=== PATIENT | male | born 1960 | race Caucasian/White ===

== ENCOUNTER 2020-01-06 15:36 | Emergency (ER) | payer BC ==
--- OUTSIDE RECORDS SUMMARY | 2020-01-06 15:38 | XMS REPORT ---
:1960 [facility] Organization [facility] Address [address] [place] [address] Care Team Providers Name Role Phone Unavailable Unavailable Unavailable Payers Payer Name Policy Type Policy Number Effective Date Expiration Date Problems This patient has no known problems. Allergies, Adverse Reactions, Alerts This patient has no known allergies or adverse reactions. Medications This patient has no known medications.
[2020-01-06] MEDS ORDERED: ASPIRIN 81 MG CHEWABLE TABLET ONE (15:57)
[2020-01-06] MEDS ORDERED: ONDANSETRON 4 MG/2 ML VIAL ONE (15:58)
[2020-01-06] MEDS ORDERED: MORPHINE 4 MG/ML SYR ONE (15:58)
[2020-01-06 16:06] LABS: Absolute Lymphocytes (CBC) 2.1 K/uL (0.7-4.9); Basophils % 0.8 % (0-1.3); Hematocrit 42.9 % (39.6-49.0); Lymphocytes % 28.8 % (15.3-44.8); RBC Red Blood Cell Count 4.84 M/uL (4.33-5.43)
[2020-01-06 16:20] LABS: Protime INR 1.04
[2020-01-06 16:30] LABS: ALT/SGPT 34 U/L (12-78); AST/SGOT 22 U/L (15-37); Albumin 3.8 g/dL (3.4-5.0); Alkaline Phosphatase 60 U/L (45-117); BUN Blood Urea Nitrogen 12 mg/dL (7-18); Bicarbonate 26 mmol/L (21-32); Bilirubin Direct 0.1 mg/dL (0-0.2); Bilirubin Total 0.4 mg/dL (0.2-1.0); Glucose Level 140 mg/dL (74-106); Magnesium 2.1 mg/dL (1.8-2.4); NT PRO-BNP 13 pg/mL (<125); Potassium 3.1 mmol/L (3.5-5.1); Protein, Total 6.5 g/dL (6.4-8.2); Sodium Level 133 mmol/L (136-145); Troponin (Emerg Dept Use Only) < 0.02 ng/mL (0.0-0.045)
[2020-01-06] MEDS ORDERED: POTASSIUM 25 MEQ EFFERV TAB ONE (16:48)
--- NOTE | 2020-01-06 17:10 | RAD REPORT ---
EXAM DESCRIPTION: RAD - Chest Single View - 01/06/2020 3:56 pm CLINICAL HISTORY: CHEST PAIN Chest pain. COMPARISON: No comparisons FINDINGS: Portable technique limits examination quality. The lungs are grossly clear. The heart is normal in size. Trace pleural effusions. IMPRESSION: No acute intrathoracic process suspected.
--- NOTE | 2020-01-06 18:40 | ER ---
Nurse's Notes [facility] Name: Loy Shirley Jr Age: 59 yrs Sex: Male : 1960 Arrival Date: 01/06/2020 Time: 15:40 Bed 13 Private MD: Guerrero Qiu V Diagnosis: Chest pain on breathing Presentation: 01/05 15:50 Chief complaint: Patient states: left sided chest pain, radiates to back x 1 month, jl7 worsening today. Coronavirus screen: Patient denies fever greater than 100.4F, cough, shortness of breath, or difficulty breathing. Proceed with normal triage process. Ebola Screen: No symptoms or risks identified at this time. Initial Sepsis Screen: Does the patient meet any 2 criteria? No. Patient's initial sepsis screen is negative. Does the patient have a suspected source of infection? No. Patient's initial sepsis screen is negative. Risk Assessment: Do you want to hurt yourself or someone else? Patient reports no desire to harm self or others. Onset of symptoms was December 08, 2019. 15:50 Method Of Arrival: Ambulatory 7 15:50 Acuity: EVAN 3 jl7 Triage Assessment: 15:50 General: Appears in no apparent distress. comfortable, Behavior is cooperative, bp appropriate for age, anxious. Pain: Complains of pain in anterior aspect of left upper chest. EENT: No deficits noted. Neuro: No deficits noted. Cardiovascular: No deficits noted. Respiratory: No deficits noted. GI: No signs and/or symptoms were reported involving the gastrointestinal system. : No signs and/or symptoms were reported regarding the genitourinary system. Derm: No deficits noted. Musculoskeletal: No deficits noted. Historical: - Allergies: 15:54 No Known Allergies; jl7 - Home Meds: 15:54 Lyrica Oral [Active]; benazepril-hydrochlorothiazide oral oral [Active]; levothyroxine jl7 oral [Active]; - PMHx: 15:54 Hypertension; Hypothyroidism; jl7 - Immunization history:: Adult Immunizations not up to date. - Social history:: Smoking status: Patient denies any tobacco usage or history of. Screenin:50 Abuse screen: Denies threats or abuse. Denies injuries from another. Nutritional bp screening: No deficits noted. Tuberculosis screening: No symptoms or risk factors identified. Fall Risk None identified. Assessment: 15:50 General: SEE TRIAGE NOTE. Pain: Pain does not radiate. Pain: Pain began suddenly. bp Cardiovascular: Rhythm is sinus rhythm. 16:40 Reassessment: SR ON MONITOR, VS STABLE. NO ACUTE S/S AT THIS TIME. bp 17:32 Reassessment: SECOND TROPONIN DRAWN AND SENT. VS STABLE ON MONITOR. bp 18:26 Reassessment: PT RESTING QUIETLY, VS STABLE. DISPO PENDING. PT ASYMPTOMATIC AT THIS bp TIME. 18:53 Reassessment: PT D/C HOME AMBULATORY, DX WITH NON-CARDIAC CHEST PAIN. bp Vital Signs: 15:50 BP 141 / 108; Pulse 77; Resp 16; Temp 98.6; Pulse Ox 97% ; Weight 81.65 kg; Pain 3/10; jl7 16:39 BP 132 / 91; Pulse 74; Resp 16; Pulse Ox 95% ; bp 17:32 BP 115 / 88; Pulse 73; Resp 17; Pulse Ox 98% ; bp 18:10 BP 119 / 83; Pulse 65; Resp 17; Pulse Ox 100% ; bp 18:25 BP 119 / 83; Pulse 84; Resp 16; Pulse Ox 97% ; bp ED Course: 15:40 Patient arrived in ED. dp 15:40 Guererro Qiu MD is Private Physician. dp 15:42 [facility] pm1 15:42 Corey Cordova MD is Attending Physician. pm1 15:45 Dereje Shaffer, MICHELL is Primary Nurse. bp 15:50 Patient has correct armband on for positive identification. Bed in low position. Call bp light in reach. Side rails up X2. chief underwriter on. Pulse ox on. NIBP on. 15:50 Inserted saline lock: 20 gauge in left antecubital area, using aseptic technique. Blood bp collected. 15:52 Triage completed. jl7 15:54 Arm band placed on right wrist. jl7 15:56 XRAY Chest (1 view) In Process Unspecified. EDMS 18:53 No provider procedures requiring assistance completed. IV discontinued, intact, bp bleeding controlled, No redness/swelling at site. Pressure dressing applied. Patient maintains SpO2 saturation greater than 95% on room air. Administered Medications: 15:50 Drug: Aspirin Chewable Tablet 324 mg Route: PO; bp 16:39 Follow up: Response: No adverse reaction bp 15:50 Drug: morphine 4 mg Route: IVP; Site: left antecubital; bp 16:39 Follow up: Response: Pain is decreased bp 15:50 Drug: Zofran (Ondansetron) 4 mg Route: IVP; Site: left antecubital; bp 16:39 Follow up: Response: No adverse reaction bp 16:49 Drug: Potassium Effervescent Tablet 50 mEq Route: PO; bp 18:11 Follow up: Response: No adverse reaction bp Outcome: 18:39 Discharge ordered by MD. watkins 18:53 Discharged to home ambulatory. bp 18:53 Condition: stable 18:53 Discharge instructions given to patient, Instructed on discharge instructions, follow up and referral plans. medication usage, Demonstrated understanding of instructions, follow-up care, medications, Prescriptions given X 1. 18:55 Patient left the ED. bp Signatures: Dispatcher [employer] EDMS Marquis Mobley NP SOCIAL MEDIA MANAGER pm1 River Chong RN RN jl7 Dereje Shaffer RN RN bp Corey Cordova MD MD ma2 Andrew Arriaga dp
--- NOTE | 2020-01-06 18:40 | EDPHYS ---
Physician Documentation [facility] Name: Loy Shirley Jr Age: 59 yrs Sex: Male : 1960 Arrival Date: 01/06/2020 Time: 15:40 Bed 13 Private MD: Guerrero Qiu V ED Physician Corey Cordova HPI: 01/05 15:49 This 59 yrs old Male presents to ER via Unassigned with complaints of Chest pm1 Pain. 15:49 The patient or guardian reports chest pain that is located primarily in the anterior pm1 aspect of left upper chest. Onset: On and off daily for the past 2 weeks. Today pain feels more intense. The pain radiates to the left scapula. Associated signs and symptoms: Pertinent positives: Occasional headache, Pertinent negatives: abdominal pain, cough, diaphoresis, dizziness, nausea, palpitations, shortness of breath, vomiting. The chest pain is described as sharp. Duration: The patient or guardian reports a single episode, that is still ongoing, that lasted 3 hour(s), today. Modifying factors: The symptoms are alleviated by nothing. the symptoms are aggravated by nothing. Severity of pain: At its worst the pain was a 3 / 10 in the emergency department the pain is actually worse is a 3 / 10. The patient has not experienced similar symptoms in the past. The patient has not recently seen a physician, the patient's primary care provider is Dr. Qiu. Historical: - Allergies: 15:54 No Known Allergies; jl7 - Home Meds: 15:54 Lyrica Oral [Active]; benazepril-hydrochlorothiazide oral oral [Active]; levothyroxine jl7 oral [Active]; - PMHx: 15:54 Hypertension; Hypothyroidism; jl7 - Immunization history:: Adult Immunizations not up to date. - Social history:: Smoking status: Patient denies any tobacco usage or history of. ROS: 15:49 Constitutional: Negative for fever, chills, and weight loss, Neck: Negative for injury, pm1 pain, and swelling. 15:49 Respiratory: Negative for shortness of breath, cough, wheezing, and pleuritic chest pain, Abdomen/GI: Negative for abdominal pain, nausea, vomiting, diarrhea, and constipation, Back: Negative for injury and pain, MS/Extremity: Negative for injury and deformity, Skin: Negative for injury, rash, and discoloration, Neuro: Negative for headache, weakness, numbness, tingling, and seizure. 15:49 Cardiovascular: Positive for chest pain, Negative for edema, palpitations. Exam: 15:49 Constitutional: This is a well developed, well nourished patient who is awake, alert, pm1 and in no acute distress. Head/Face: Normocephalic, atraumatic. Neck: Trachea midline, no thyromegaly or masses palpated, and no cervical lymphadenopathy. Supple, full range of motion without nuchal rigidity, or vertebral point tenderness. No Meningismus. Chest/axilla: Normal chest wall appearance and motion. No lesions are appreciated. Cardiovascular: Regular rate and rhythm with a normal S1 and S2. No gallops, murmurs, or rubs. No pulse deficits. Respiratory: Lungs have equal breath sounds bilaterally, clear to auscultation and percussion. No rales, rhonchi or wheezes noted. No increased work of breathing, no retractions or nasal flaring. Abdomen/GI: Soft, non-tender, with normal bowel sounds. No distension or tympany. No guarding or rebound. No evidence of tenderness throughout. Back: No spinal tenderness. No costovertebral tenderness. Full range of motion. Skin: Warm, dry with normal turgor. Normal color with no rashes, no lesions, and no evidence of cellulitis. MS/ Extremity: Pulses equal, no cyanosis. Neurovascular intact. Full, normal range of motion. 15:49 Neuro: Exam negative for acute changes, Orientation: is normal, Motor: is normal, moves all fours. 17:00 Chest/axilla: Palpation: crepitus, is not appreciated, tenderness, that is mild, of the pm1 anterior aspect of left upper chest, that totally reproduces the patient's complaints, and reproducible with movement of left arm. Vital Signs: 15:50 BP 141 / 108; Pulse 77; Resp 16; Temp 98.6; Pulse Ox 97% ; Weight 81.65 kg; Pain 3/10; jl7 16:39 BP 132 / 91; Pulse 74; Resp 16; Pulse Ox 95% ; bp 17:32 BP 115 / 88; Pulse 73; Resp 17; Pulse Ox 98% ; bp 18:10 BP 119 / 83; Pulse 65; Resp 17; Pulse Ox 100% ; bp 18:25 BP 119 / 83; Pulse 84; Resp 16; Pulse Ox 97% ; bp MDM: 15:43 Patient medically screened. pm1 15:52 Data reviewed: vital signs. pm1 18:38 Differential diagnosis: anxiety, chest wall pain, gastritis, pleurisy. SRIDHAR Risk Score: ma2 not applicable. Counseling: I had a detailed discussion with the patient and/or guardian regarding: the historical points, exam findings, and any diagnostic results supporting the discharge/admit diagnosis, the presence of at least one elevated blood pressure reading (>120/80) during this emergency department visit, the need for outpatient follow up. 01/05 15:43 Order name: Basic Metabolic Panel; Complete Time: 16:31 pm1 01/05 15:43 Order name: CBC with Diff; Complete Time: 16:14 pm1 01/05 15:43 Order name: LFT's; Complete Time: 16:31 pm01/05 15:43 Order name: Magnesium; Complete Time: 16:31 pm01/05 15:43 Order name: NT PRO-BNP; Complete Time: 16:31 pm01/05 15:43 Order name: PT-INR; Complete Time: 16:24 pm1 01/05 15:43 Order name: Troponin (emerg Dept Use Only); Complete Time: 16:31 pm01/05 15:43 Order name: XRAY Chest (1 view); Complete Time: 17:15 pm01/05 15:43 Order name: EKG; Complete Time: 15:44 pm01/05 17:22 Order name: Troponin (emerg Dept Use Only): repeated 2nd trop at 6 pm vt2 01/05 15:43 Order name: Cardiac monitoring; Complete Time: 16:01 pm01/05 15:43 Order name: EKG - Nurse/Tech; Complete Time: 16:01 pm01/05 15:43 Order name: IV Saline Lock; Complete Time: 16:01 pm01/05 15:43 Order name: Labs collected and sent; Complete Time: 16:01 pm01/05 15:43 Order name: O2 Per Protocol; Complete Time: 16:01 pm01/05 15:43 Order name: O2 Sat Monitoring; Complete Time: 16:01 pm1 EC:54 Rate is 75 beats/min. Rhythm is regular, Normal Sinus Rhythm with No ectopy. No Q pm1 waves. T waves are Normal. No ST changes noted. Clinical impression: Normal ECG. Administered Medications: 15:50 Drug: Aspirin Chewable Tablet 324 mg Route: PO; bp 16:39 Follow up: Response: No adverse reaction bp 15:50 Drug: morphine 4 mg Route: IVP; Site: left antecubital; bp 16:39 Follow up: Response: Pain is decreased bp 15:50 Drug: Zofran (Ondansetron) 4 mg Route: IVP; Site: left antecubital; bp 16:39 Follow up: Response: No adverse reaction bp 16:49 Drug: Potassium Effervescent Tablet 50 mEq Route: PO; bp 18:11 Follow up: Response: No adverse reaction bp Disposition: 18:38 Co-signature as Attending Physician, Corey Cordova MD. Co-signature as Attending ma2 Physician, Corey Cordova MD. Disposition: 01/06/20 18:39 Discharged to Home. Impression: Chest pain on breathing. - Condition is Stable. - Discharge Instructions: Chest Wall Pain. - Prescriptions for Diclofenac Sodium 75 mg Oral Tablet Sustained Release - take 1 tablet by ORAL route 2 times per day; 30 tablet. - Medication Reconciliation Form, Thank You Letter, Antibiotic Education, Prescription Opioid Use form. - Follow up: Private Physician; When: Tomorrow; Reason: Continuance of care. Signatures: Dispatcher [employer] EDAL Marquis Mobley NP REPEATER OPERATOR pm1 River Chong RN RN jl7 Dereje Shaffer RN RN bp Alzahri, Mohammad, MD MD vt2 Corrections: (The following items were deleted from the chart) 15:59 15:49 Constitutional: This is a well developed, well nourished patient who is awake, pm1 alert, and in no acute distress. Head/Face: Normocephalic, atraumatic. Neck: Trachea midline, no thyromegaly or masses palpated, and no cervical lymphadenopathy. Supple, full range of motion without nuchal rigidity, or vertebral point tenderness. No Meningismus. Chest/axilla: Normal chest wall appearance and motion. Nontender with no deformity. No lesions are appreciated. Cardiovascular: Regular rate and rhythm with a normal S1 and S2. No gallops, murmurs, or rubs. No pulse deficits. Respiratory: Lungs have equal breath sounds bilaterally, clear to auscultation and percussion. No rales, rhonchi or wheezes noted. No increased work of breathing, no retractions or nasal flaring. Abdomen/GI: Soft, non-tender, with normal bowel sounds. No distension or tympany. No guarding or rebound. No evidence of tenderness throughout. Back: No spinal tenderness. No costovertebral tenderness. Full range of motion. Skin: Warm, dry with normal turgor. Normal color with no rashes, no lesions, and no evidence of cellulitis. MS/ Extremity: Pulses equal, no cyanosis. Neurovascular intact. Full, normal range of motion. pm1 17:05 15:49 Constitutional: This is a well developed, well nourished patient who is awake, pm1 alert, and in no acute distress. Head/Face: Normocephalic, atraumatic. Neck: Trachea midline, no thyromegaly or masses palpated, and no cervical lymphadenopathy. Supple, full range of motion without nuchal rigidity, or vertebral point tenderness. No Meningismus. Chest/axilla: Normal chest wall appearance and motion. Nontender with no deformity. No lesions are appreciated. Cardiovascular: Regular rate and rhythm with a normal S1 and S2. No gallops, murmurs, or rubs. No pulse deficits. Respiratory: Lungs have equal breath sounds bilaterally, clear to auscultation and percussion. No rales, rhonchi or wheezes noted. No increased work of breathing, no retractions or nasal flaring. Abdomen/GI: Soft, non-tender, with normal bowel sounds. No distension or tympany. No guarding or rebound. No evidence of tenderness throughout. Back: No spinal tenderness. No costovertebral tenderness. Full range of motion. Skin: Warm, dry with normal turgor. Normal color with no rashes, no lesions, and no evidence of cellulitis. MS/ Extremity: Pulses equal, no cyanosis. Neurovascular intact. Full, normal range of motion. pm1 18:55 18:39 01/06/2020 18:39 Discharged to Home. Impression: Chest pain on breathing. bp Condition is Stable. Forms are Medication Reconciliation Form, Thank You Letter, Antibiotic Education, Prescription Opioid Use. Follow up: Private Physician; When: Tomorrow; Reason: Continuance of care. ma2
[2020-01-06 19:15] VITALS: TEMP 98.6
[2020-01-06 19:19] VITALS: BP 119/83
[2020-01-06 19:21] VITALS: O2SAT 97
--- NOTE | 2020-01-07 05:25 | EKG ---
Test Date: 2020-01-06 Test Time: 15:54:05 [employer]visor [employer]: ROSIE MEASUREMENT RESULTS: Intervals: Rate: 75 HI: 140 QRSD: 82 QT: 358 QTc: 399 Starlight: P: 56 HI: 140 QRS: 36 T: 52 INTERPRETIVE STATEMENTS: Normal sinus rhythm Normal ECG No previous ECG available for comparison Electronically Signed On 01-07-20 05:23:43 CDT by Maurice Varghese
== END 2020-01-06 18:55 | disposition home or self-care (01) ==
LOC: ER 15:36
DX: R07.1 Chest pain on breathing (principal); R51 Headache; I10 Essential (primary) hypertension; E03.9 Hypothyroidism, unspecified
CPT/HCPCS: 93005; 85025; 80048; 36415; 83735; 85610; 80076; 84484 ×2; 83880; 71045; 96375; 96374; 99285; J2405